=== PATIENT | male | born 1965 | race Caucasian/White ===

== ENCOUNTER → 2017-02-21 10:25 | Outpatient (CLI) | payer BC, SELFPAY ==
--- NOTE | 2017-02-21 10:41 | XR_ITS ---
EXAM: XR cervical spine 5V HISTORY: ITS.REASON: RT SHOULDER PAIN,RADIATING PAIN IN RT ARM ORDERING PHYSICIAN: Rodo Rubio PATIENT AGE: 51 years COMPARISON: None FINDINGS: Normal alignment. No fracture or dislocation. No lytic or blastic change. There is degenerative disc disease at C5-C6 and to a lesser degree at C6-C7. No critical foraminal narrowing apparent IMPRESSION: Mild degenerative disc disease C5-C6 and C6-C7
== END ==
PROVIDERS: PCP Internal Medicine; Visit Provider Internal Medicine
DX: M25.511 Pain in right shoulder (principal); M79.601 Pain in right arm
CPT/HCPCS: 72050

== ENCOUNTER → 2017-03-09 14:10 | Outpatient (CLI) | payer BC, SELFPAY ==
--- NOTE | 2017-03-09 14:12 | MR_ITS ---
MR shoulder RT wo con HISTORY: Right shoulder pain with numbness radiating down right arm into hand with limited range of motion ITS.REASON: RT SHOULDER PAIN/NECK PAIN ORDERING PHYSICIAN: Rodo Rubio PATIENT AGE: 51 years COMPARISON: Radiograph of 01/05/2017 TECHNIQUE: Standard multiplanar multiecho sequences are performed without contrast. FINDINGS: Osteoarthritic and hypertrophic changes are present at the acromioclavicular joint causing mild impingement upon the supraspinatus musculotendinous junction. There is full-thickness tear of the supraspinatus tendon distally and anteriorly with minimal retraction of the musculotendinous fibers at this region.. There are intact tendinous fibers posteriorly. The supraspinatus tendon is thickened with increased T2 and T1 signal posteriorly consistent with tendinopathy/tendinosis. There is also tendinopathy/tendinosis of the infraspinatus tendon. There is some increased T2 signal involving the distal aspect of the infraspinatus tendon which may suggest a partial tear. The subscapularis and teres minor tendons are intact. No obvious labral tear. The bicipital tendon is in place. There is a minor subcortical cystic change of the humeral head. IMPRESSION: 1. Hypertrophic changes of the acromioclavicular joint with mild impingement and tendinopathy/tendinosis of both the supraspinatus and infraspinatus tendon. 2. Full-thickness tear involves the anterior aspect of the supraspinatus tendon. The posterior aspect of the supraspinatus tendon does appear intact and is thickened consistent with tendinopathy/tendinosis. 3. Partial tear suspected of the infraspinatus tendon
== END ==
PROVIDERS: Family Provider Internal Medicine; PCP Internal Medicine; Visit Provider Internal Medicine
DX: M25.511 Pain in right shoulder (principal); M54.2 Cervicalgia
CPT/HCPCS: 73221

== ENCOUNTER 2017-04-25 15:30 | Outpatient (RCR) | payer BC, SELFPAY | END 2017-04-25 15:31 | disposition home or self-care (01) | LOC: PT 15:30 | PROVIDERS: Family Provider Internal Medicine; PCP Internal Medicine; Visit Provider Orthopaedic Surgery | DX: M50.222 Other cervical disc displacement at C5-C6 level (principal) | CPT/HCPCS: 97010; 97012; 97014; 97035; 97110; G0283 ==

== ENCOUNTER → 2017-06-07 12:30 | Outpatient (CLI) | payer BC, SELFPAY ==
[2017-06-07 12:33] LABS: Microscopic, Urine URINE MICROSCOPIC (MICROSCOPIC)
[2017-06-07 13:08] LABS: Activated Partial Thrombo Time 26.2 seconds (23.6-34.0); Prothrombin Time 10.8 seconds (9.4-11.8)
[2017-06-07 13:12] LABS: Basophils # 0.1 K/mm3 (0-0.2); Basophils % 0.9 % (0.1-2.0); Eosinophils # 0.2 K/mm3 (0.0-0.4); Eosinophils % 2.2 % (0.1-12.0); Hematocrit 45.2 % (42.0-52.0); Lymphocytes # 2.6 K/mm3 (0.7-4.5); Lymphocytes % 31.6 K/mm3 (10-50); Mean Corpuscular HGB Conc 33.1 g/dL (31.8-35.4); Mean Corpuscular Hemoglobin 28.7 pg (27.0-31.2); Mean Corpuscular Volume 86.8 fl (80-94); Monocytes # 0.5 K/mm3 (0.1-1.0); Monocytes % 6.3 % (1.7-9.3); Neutrophils # 4.9 K/mm3 (1.8-7.8); Platelet Count 224 K/mm3 (142-424); Red Blood Count 5.21 M/mm3 (4.60-6.20); Red Cell Distribution Width 12.7 % (11.5-17.5); White Blood Count 8.2 K/mm3 (4.8-10.8)
[2017-06-07 13:13] LABS: Appearance,Urine CLEAR (Clear); Bilirubin,Urine Negative (Negative); Blood, Urine Negative (Negative); Color,Urine YELLOW (Yellow); Glucose,Urine (UA) Negative (Negative); Ketones,Urine Negative (Negative); Leukocyte Esterase,Urine Negative (Negative); Nitrate,Urine Negative (Negative); Protein,Urine Negative (Negative); Specific Gravity, Urine 1.025 (1.005-1.030); Urobilinogen,Urine 0.2 EU/dl (0.2)
[2017-06-07 13:21] LABS: Bacteria,Urine 1+ /lpf; WBC,Urine Occasional #/hpf (0-3)
[2017-06-07 13:22] LABS: Mucus,Urine 2+ /lpf
[2017-06-07 14:05] LABS: Anion Gap 12.6 mEq/L (5-15); Blood Urea Nitrogen 12 mg/dL (7-18); Carbon Dioxide 28 mmol/L (21.0-32.0); Chloride 105 mmol/L (98-107); Creatinine,Serum 0.86 mg/dL (0.70-1.30); Estimated Glomerular Filt Rate 93 ml/min (>60); GFR (African American) 113 ML/MIN (>60); Potassium 4.6 mmoL/L (3.5-5.1); Sodium 141 mmol/L (136-145)
[2017-06-07 14:17] LABS: Glucose 111 mg/dL (74-106)
== END ==
PROVIDERS: Visit Provider Orthopaedic Surgery
DX: Z01.818 Encounter for other preprocedural examination (principal); M54.2 Cervicalgia
CPT/HCPCS: 36415; 80048; 81001; 85025; 85610; 85730; 93005

== ENCOUNTER → 2017-08-06 14:19 | Outpatient (CLI) | payer BC, SELFPAY ==
[2017-08-06 14:59] VITALS: PULSE 80
== END ==
PROVIDERS: Family Provider Internal Medicine; PCP Internal Medicine; Visit Provider Internal Medicine
DX: R06.02 Shortness of breath (principal)
CPT/HCPCS: 94060; 94640

== ENCOUNTER → 2018-04-15 15:12 | Outpatient (POV) | payer BC, SELFPAY | PROVIDERS: Visit Provider Nurse Practitioner Acute Care | DX: Z00.00 Encounter for general adult medical examination without abnormal findings (principal) ==

== ENCOUNTER → 2019-12-08 10:02 | Outpatient (CLI) | payer BC, SELFPAY ==
[2019-12-09 05:12] LABS: FSH 3.3 mIU/mL (1.5-12.4); LH 3.2 mIU/mL (1.7-8.6)
[2019-12-09 07:58] LABS: Prolactin 17.8 ng/mL (4.0-15.2)
[2019-12-10 09:23] LABS: Testosterone,Free 9.7 pg/mL (7.2-24.0)
== END ==
PROVIDERS: Visit Provider Internal Medicine
DX: R79.89 Other specified abnormal findings of blood chemistry (principal)
CPT/HCPCS: 36415; 83001; 83002; 84146; 84402

== ENCOUNTER → 2020-06-21 15:39 | Outpatient (POV) | payer BC, SELFPAY | PROVIDERS: Visit Provider Nurse Practitioner Family | DX: Z00.00 Encounter for general adult medical examination without abnormal findings (principal) ==

== ENCOUNTER → 2020-10-26 16:15 | Outpatient (CLI) | payer OTHER, SELFPAY | PROVIDERS: PCP Internal Medicine; Visit Provider Internal Medicine | DX: Z20.822 Contact with and (suspected) exposure to COVID-19 (principal) | CPT/HCPCS: U0003 ==

== ENCOUNTER → 2021-02-17 10:35 | Outpatient (CLI) | payer OTHER, SELFPAY | PROVIDERS: Visit Provider Nurse Practitioner | DX: Z20.822 Contact with and (suspected) exposure to COVID-19 (principal) | CPT/HCPCS: C9803; U0003; U0005 ==

== ENCOUNTER → 2021-06-14 17:21 | Outpatient (CLI) | payer BC, SELFPAY ==
[2021-06-14 20:31] LABS: Alanine Aminotransferase 13 U/L (12-78); Albumin/Globulin Ratio 1.5 (1.1-1.8); Alkaline Phosphatase 79 U/L (38-126); Anion Gap 12.2 mEq/L (5-15); Aspartate Amino Transferase 19 U/L (17-59); Bilirubin,Total 0.5 mg/dl (0.2-1.3); Blood Urea Nitrogen 14 mg/dl (9-20); Calcium 8.6 mg/dl (8.4-10.2); Carbon Dioxide 24 mmol/L (22.0-30.0); Chloride 107 mmol/L (98-107); Cholesterol 181 mg/dl (140-200); Estimated Glomerular Filt Rate 117 ml/min (>60); GFR (African American) 141 ML/MIN (>60); Globulin 2.7 g/dL (1.3-3.2); Glucose 88 mg/dl (74-100); HDL Cholesterol 36 mg/dl (40-60); Potassium 4.2 mmoL/L (3.5-5.1); Sodium 139 mmol/L (136-145); Total Protein,Serum 6.7 g/dl (6.3-8.2); Triglycerides 266 mg/dl (30-150); VLDL Cholesterol 53 mg/dL (0-40)
[2021-06-14 20:41] LABS: Direct LDL Cholesterol 50.82 mg/dL (100-129)
[2021-06-14 21:02] LABS: Prostate Specific Ag Screen 0.3 ng/ml (0.0-4.0)
[2021-06-14 21:24] LABS: Basophils # 0.1 K/mm3 (0-0.2); Basophils % 0.8 % (0.1-2.0); Eosinophils # 0.1 K/mm3 (0.0-0.4); Eosinophils % 1.8 % (0.1-12.0); Hematocrit 44.9 % (42.0-52.0); Hemoglobin 14.4 g/dL (14.1-18.0); Lymphocytes # 2.5 K/mm3 (0.7-4.5); Lymphocytes % 31.4 % (10-50); Mean Corpuscular HGB Conc 32.2 g/dL (31.8-35.4); Mean Corpuscular Hemoglobin 28.3 pg (27.0-31.2); Mean Platelet Volume 8.8 fl (7.4-10.4); Monocytes # 0.5 K/mm3 (0.1-1.0); Monocytes % 6.2 % (1.7-9.3); Neutrophils # 4.7 K/mm3 (1.8-7.8); Neutrophils % 59.7 % (37.0-80.0); Platelet Count 230 K/mm3 (142-424); Red Cell Distribution Width 12.8 % (11.5-17.5); White Blood Count 7.8 K/mm3 (4.8-10.8)
== END ==
PROVIDERS: PCP Internal Medicine; Visit Provider Internal Medicine
DX: R53.83 Other fatigue (principal); E78.5 Hyperlipidemia, unspecified; F41.0 Panic disorder [episodic paroxysmal anxiety]; K52.9 Noninfective gastroenteritis and colitis, unspecified; Z12.5 Encounter for screening for malignant neoplasm of prostate
CPT/HCPCS: 80053; 80061; 84443; 85025; G0103

== ENCOUNTER → 2021-07-11 16:00 | Outpatient (CLI) | payer BC, SELFPAY | PROVIDERS: Visit Provider Internal Medicine Gastroenterology | DX: Z01.812 Encounter for preprocedural laboratory examination (principal); Z20.822 Contact with and (suspected) exposure to COVID-19; Z12.11 Encounter for screening for malignant neoplasm of colon; Z85.038 Personal history of other malignant neoplasm of large intestine | CPT/HCPCS: C9803; U0003; U0005 ==

== ENCOUNTER 2021-07-14 08:30 | Day surgery (SDC) | payer BC, SELFPAY ==
[2021-07-11 12:40] VITALS: BMI 28.7
[2021-07-14] VITALS (7 sets, daily range): BP systolic 94–143; BP diastolic 59–89; PULSE 68–77; RESP 16–18; TEMP 36.3–37.1; O2SAT 94–98
--- NOTE | 2021-07-14 08:50 | HMH.ANESCL ---
[facility] Anesthesia Checklist - Structural Data Admitted From: Home Planned Operative Procedure/s: colonoscopy Consent for Planned Operative Procedure(s) Verified: Yes - Airway Assessment C-Spine Mobility Assessed: Yes TMJ Mobility Assessed: Yes Dentition: Edentulous - Neurological Assessment Level of Consciousness: Awake, Alert, Appropriate - Anesthesia Plan Anesthesia Risk discussed: Yes Anesthesia Plan: Verified ASA Class: II Anesthesia Type: MAC [facility] History I have reviewed the patient's past medical history: Yes Medical History: Denies:: Cancer, Diabetes Mellitus Type 1, Diabetes Mellitus Type 2, Internal Pacemaker, MRSA, Seizures *Have you ever received a pneumonia vaccine?: No *Have you received a flu vaccine this season?: No Anesthesia experience/problems:: none Laterality Cases: Bilateral: Tonsillectomy Other Surgeries: No: Pacemaker Amputation: No Fractures: Yes - *Social History Last grade of school completed: High school graduate Smoking Status: Current every day smoker Tobacco Type: cigarettes # Packs/Day (cigarettes): 1 Alcohol Intake: never Substance Use Type: denies use *Occupational Status:: employed *Travel in the last 8 weeks: None Family Hx:: No significant family history
--- NOTE | 2021-07-14 09:33 | HMH.SCOPE ---
- Procedure: Date: 07/14/21 Patient Date of :: 1965 Procedure Performed:: Screening colonoscopy Indications:: History of polyps Performing Provider:: Rosana Gilmore MD Referring Provider:: Brody Rubio MD Sedation:: Propofol Procedure:: After placing the patient in the left lateral decubitus position, the colonoscopy was gently inserted into the rectum and under direct visualization advanced to the cecum which was identified by transillumination in the right lower quadrant, identification of the ileocecal valve, appendiceal orifice, and cecal strap. Color, texture, mucosa, and anatomy of the colon were carefully examined with the scope. Findings:: Anal canal: normal Rectum: normal Sigmoid colon: normal without polyps or inflammatory changes Descending colon: normal without polyps or inflammatory changes Splenic flexure: normal Transverse colon: normal without polyps or inflammatory changes Hepatic flexure: normal Ascending colon: normal without polyps or inflammatory changes Cecum: normal Terminal ileum: not visualized Impression: Normal colonoscopy Recommendations:: Follow up exam in about FIVE years or so, sooner if clinically indicated Complications:: None Estimated blood obtained (mL): 0
== END 2021-07-14 10:03 | disposition home or self-care (01) ==
LOC: OUTP 08:32
PROVIDERS: PCP Internal Medicine; Visit Provider Internal Medicine Gastroenterology
PROC: 0DJD8ZZ Inspection of Lower Intestinal Tract, Via Natural or Artificial Opening Endoscopic (ICD-10-PCS; CPT 45378; principal; 2021-07-14 10:30)
DX: Z12.11 Encounter for screening for malignant neoplasm of colon (principal); Z86.010 Personal history of colon polyps
CPT/HCPCS: 45378

== ENCOUNTER 2021-08-15 19:47 | Emergency (ER) | payer BC, SELFPAY ==
[2021-08-15 20:07] VITALS: BP 145/66; PULSE 70; RESP 18; TEMP 37.1; O2SAT 97; BMI 27.1
--- NOTE | 2021-08-15 20:07 | HMH.EDUTC ---
[facility] [place] Clinical Impression: Need for Tdap vaccination Laceration of right knee Qualifiers: Encounter type: initial encounter Qualified Code(s): S81.011A - Laceration without foreign body, right knee, initial encounter Disposition: Home, Self-Care Condition on Discharge: Good Instructions: How to Care for a Laceration After Repair, Laceration Repair, DI for Laceration Repair -- Simple, Tetanus, Diphtheria, Pertussis (Tdap) Vaccine Additional Instructions: Keep the wound clean and dry. Keep a dressing on it if you are going to be getting it dirty. Watch the for signs of infection, such as redness, swelling, drainage, fever. etc. Take tylenol or ibuprofen for pain. Take the keflex as directed (antibiotics). Follow up with your regular doctor for any issues. Or you could return here. Return here in 7 to 10 days to have the sutures removed. GO TO THE ER FOR ANY WORSENING SYMPTOMS OR CONCERNS. Prescriptions: cephALEXin [cephALEXin 500mg capsule] 500 mg PO Q6H 10 Days #40 cap Transmission Status: Received by [facility] Referrals: Rodo Rubio MD [Primary Care Provider] - Time of Disposition: 20:23 Medical Decision Making - Medical Records Medical records reviewed: No: I reviewed the patient's medical records. - Shayan Inquiry Pt receiving controlled substance: No Vital Signs: 08/15/21 20:07 08/15/21 20:28 Temperature 98.7 F 98.7 F Temperature Source Oral Pulse Rate 70 Pulse Rate [Left] 70 Respiratory Rate 18 18 Blood Pressure 145/66 H Blood Pressure [Right Arm] 145/66 H Blood Pressure Mean [Right Arm] 92 02 Sat by Pulse Oximetry 97 Orders (Tests/Meds): ED MEDICATIONS Discontinued Medications Generic Name Dose Route Start Last Admin Trade Name Freq PRN Reason Stop Dose Admin Lidocaine HCl 5 ml 08/15/21 20:25 08/15/21 20:26 Lidocaine 1% 10ml Mdv IM 08/15/21 20:26 5 ml ONCE ONE Administration Tetanus Immune Globulin 250 unit 08/15/21 20:23 08/15/21 20:24 Tetanus Immune Globulin 250 Units IM 08/15/21 20:24 Not Given ONCE ONE Tetanus/Diphtheria Toxoids 0.5 ml 08/15/21 20:26 08/15/21 20:27 Tetanus-Diphth Toxoid, Adult 0.5ml Syr IM 08/15/21 20:27 0.5 ml .ONCE ONE Administration [facility] [place] HPI - General Stated complaint: AO 08/15 @1900 lac R knee Time Seen by Provider: 08/15/21 20:10 - History of Present Illness Provider Complaint: He was sharpening a garden tool when he slipped 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 He has a laceration on the top of his right knee near the center of his knee cap. His tetanus immunization is not up to date. He denies other injury. - Related Data Previous Rx's Medication Instructions Recorded cephALEXin [cephALEXin 500mg 500 mg PO Q6H 10 Days #40 cap 08/15/21 capsule] Allergies Allergy/AdvReac Type Severity Reaction Status Date / Time Penicillins Allergy Verified 08/15/21 20:10 [facility] History - Hepatitis A Screen Attestation statement:: This patient has been screened for Hepatitis A risk factors. I have reviewed the patient's past medical history: Yes Medical History: Denies:: Cancer, Diabetes Mellitus Type 1, Diabetes Mellitus Type 2, Internal Pacemaker, MRSA, Seizures Laterality Cases: Bilateral: Tonsillectomy Other Surgeries: No: Pacemaker Amputation: No Fractures: Yes - Social History Smoking Status: Current every day smoker Tobacco Type: cigarettes # Packs/Day (cigarettes): 1 Alcohol Intake: never Substance Use Type: denies use Occupational Status: employed Family Hx:: No significant family history ROS Obtained: Yes All systems reviewed & no additional complaints - Constitutional Constitutional: Denies chills, Denies fever(s) - Musculoskeletal Musculoskeletal: Denies joint pain - Integumentary/Breasts Skin/Breast: Reports as per HPI - Neurologic Neurologic: Denies tingling/numbness/burning se
[2021-08-15 20:28] VITALS: BP 145/66; PULSE 70; RESP 18; TEMP 37.1
== END 2021-08-15 20:29 | disposition home or self-care (01) ==
PROVIDERS: Emergency Provider Nurse Practitioner Family; PCP Internal Medicine
DX: S81.011A Laceration without foreign body, right knee, initial encounter (principal); Z23 Encounter for immunization; Z88.0 Allergy status to penicillin; Z72.0 Tobacco use
CPT/HCPCS: 12001; 90471; 90714; 96372; 99213; G0463

== ENCOUNTER → 2021-11-08 15:33 | Outpatient (CLI) | payer BC, SELFPAY ==
--- NOTE | 2021-11-08 15:37 | XR_ITS ---
FINAL REPORT TECHNIQUE: Chest PA & Lateral CLINICAL HISTORY: MID BACK PAIN COMPARISON: June 16, 2017 FINDINGS: 2 views of the chest were performed. The heart size is normal. The mediastinum is within normal limits. There are mild chronic changes in both lungs. There is no acute cardiopulmonary process. There are no pleural effusions. There is no pneumothorax. The bony thorax appears intact. IMPRESSION: No acute cardiopulmonary process. Reviewed, Interpreted and Dictated by Chriss Sanders MD Transcribed by Sony Samuel Authenticated and . [facility]
--- NOTE | 2021-11-08 15:37 | XR_ITS ---
FINAL REPORT CLINICAL HISTORY: MID LINE BACK PAIN FINDINGS: THORACIC SPINE SERIES. AP and lateral views were obtained. There is no acute fracture. There is moderate anterior osteophyte formation in the midthoracic spine. The disc spaces are maintained. There is no malalignment. IMPRESSION: Moderate anterior osteophyte formation in the midthoracic spine. Reviewed, Interpreted and Dictated by Chriss Sanders MD Transcribed by Sony Samuel Authenticated and [facility]
== END ==
PROVIDERS: PCP Internal Medicine; Visit Provider Internal Medicine
DX: M54.6 Pain in thoracic spine (principal)
CPT/HCPCS: 71046; 72072

== ENCOUNTER 2023-12-05 14:01 | Outpatient (CLI) | payer BC, SELFPAY ==
--- NOTE | 2023-12-05 14:05 | XR_ITS ---
PROCEDURE INFORMATION: Exam: XR Cervical Spine Exam date and time: 12/05/2023 2:24 PM Age: 58 years old Clinical indication: Neck pain; Additional info: Neck pain and stiffness TECHNIQUE: Imaging protocol: Radiologic exam of the cervical spine. Views: 4 or 5 views. COMPARISON: CR XR CERVICAL SPINE 5V 12/05/2023 2:24 PM FINDINGS: Bones/joints: Postop anterior fusion C5 and C6. Mild degenerative change at C6-C7 Soft tissues: Unremarkable. IMPRESSION: Postop anterior fusion of C5 and C6 level. Mild degenerative change at C6-C7 level.
== END 2023-12-05 23:59 | disposition home or self-care (01) ==
LOC: RAD 14:02
PROVIDERS: PCP Internal Medicine; Visit Provider Internal Medicine
DX: M54.2 Cervicalgia (principal)
CPT/HCPCS: 72050

== ENCOUNTER 2023-12-21 11:45 | Outpatient (CLI) | payer BC, SELFPAY ==
[2023-12-22 14:11] LABS: Deamidated Gliadin Abs, IgA 5 units (0-19); Deamidated Gliadin Abs, IgG 2 units (0-19); Tissue Transglutaminase IgA Ab <2 U/mL (0-3); Tissue Transglutaminase IgG Ab <2 U/mL (0-5)
[2023-12-24 14:11] LABS: Endomysial IgA Antibody Negative (Negative)
[2023-12-25 01:13] LABS: Pancreatic Elastase, Fecal 205 (>200)
[2023-12-25 13:12] LABS: Calprotectin, Fecal 28 ug/g (0-120)
[2023-12-26 09:39] LABS: Reticulin IgA Antibody Negative titer (Neg:<1:2.5)
== END 2023-12-21 23:59 | disposition home or self-care (01) ==
LOC: LAB 11:45
PROVIDERS: PCP Internal Medicine; Visit Provider Nurse Practitioner Family
DX: K52.9 Noninfective gastroenteritis and colitis, unspecified (principal); R15.2 Fecal urgency; Z83.79 Family history of other diseases of the digestive system; R14.3 Flatulence
CPT/HCPCS: 36415; 82656; 83516; 83993; 86255; 86256

== ENCOUNTER 2024-09-24 22:31 | Day surgery (SDC) | payer BC, SELFPAY ==
[2024-09-24 22:44] VITALS: BP 165/105; PULSE 72; RESP 18; TEMP 36.7; O2SAT 100; BMI 28.4
--- NOTE | 2024-09-24 22:49 | XR_ITS ---
PROCEDURE INFORMATION: Exam: XR Chest Exam date and time: 09/24/2024 10:58 PM Age: 59 years old Clinical indication: Other: Possible food impaction; PT states hes tried multiple methods and cannot get it unlodged TECHNIQUE: Imaging protocol: Radiologic exam of the chest. Views: 1 view. COMPARISON: CR XR CHEST 2V 11/08/2021 3:40 PM FINDINGS: Lungs: Prominent interstitial markings, nonspecific, may be seen in the setting of interstitial edema, reactive airways disease or atypical infection. Pleural spaces: No pneumothorax. Heart/Mediastinum: Unremarkable cardiomediastinal silhouette. Bones/joints: Metallic plate cervical spine. IMPRESSION: Prominent interstitial markings, nonspecific, may be seen in the setting of interstitial edema, reactive airways disease or atypical infection.
--- NOTE | 2024-09-24 23:09 | ECG_ITS ---
APPROVED REPORT Exam: Resting ECG HR:66 bpm ECG Measurements Heart Rate 66 AXES NE 188 P 57 QRSd 98 QRS 49 QT 387 T 41 QTc 400 Conclusion SINUS RHYTHM NORMAL ECG Electronically signed by : OPAL HERNÁNDEZ, 09/25/2024 06:38:15
--- NOTE | 2024-09-24 23:09 | XR_ITS ---
PROCEDURE INFORMATION: Exam: XR Chest Exam date and time: 09/24/2024 11:17 PM Age: 59 years old Clinical indication: Other: Food bolus TECHNIQUE: Imaging protocol: Radiologic exam of the chest. Views: 1 view. COMPARISON: CR XR CHEST PORTABLE 09/24/2024 10:58 PM FINDINGS: Lungs: No retrocardiac consolidation. Pleural spaces: No pneumothorax. Heart/Mediastinum: Prominent cardiomediastinal silhouette. Bones/joints: No acute osseous findings. IMPRESSION: Food bolus is often occult on radiograph. Suggest correlation with CT
[2024-09-24] MEDS: GLUCAGON 1 MG/ML VIAL IV (23:14)
--- NOTE | 2024-09-24 23:17 | PC.NURSE ---
Report given to Evelia EARL
[2024-09-24 23:20] LABS: Hematocrit 42.5 % (42.0-52.0); Hemoglobin 14.2 g/dL (14.1-18.0); Immature Granulocytes % 0.3 %; Mean Corpuscular HGB Conc 33.4 g/dL (31.8-35.4); Mean Corpuscular Hemoglobin 28.7 pg (27.0-31.2); Mean Corpuscular Volume 86.0 fl (80-94); Nucleated Red Blood Cells % 0 %; Platelet Count 250 K/mm3 (142-424); Red Blood Count 4.94 M/mm3 (4.60-6.20); Red Cell Distribution Width-SD 40.8 fL; White Blood Count 11.9 K/mm3 (4.8-10.8)
--- NOTE | 2024-09-24 23:23 | PC.NURSE ---
Amy Gifford RN gave report to Emir Ontiveros RN
[2024-09-24 23:44] LABS: Alanine Aminotransferase 18 U/L (12-78); Albumin Level 4.5 g/dl (3.5-5.0); Albumin/Globulin Ratio 1.4 (1.1-1.8); Alkaline Phosphatase 95 U/L (38-126); Anion Gap 12.0 mEq/L (5-15); Aspartate Amino Transferase 25 U/L (17-59); Bilirubin,Total 0.5 mg/dl (0.2-1.3); Blood Urea Nitrogen 14 mg/dl (9-20); Calcium 9.3 mg/dl (8.4-10.2); Carbon Dioxide 26 mmol/L (22.0-30.0); Chloride 105 mmol/L (98-107); Creatinine Clearance Estimated 114 mL/min (50-200); Creatinine,Serum 0.90 mg/dl (0.66-1.25); Estimated Glomerular Filt Rate 86 ml/min (>60); GFR (African American) 104 ML/MIN (>60); Globulin 3.2 g/dL (1.3-3.2); Glucose 106 mg/dl (74-100); Potassium 4.0 mmoL/L (3.5-5.1); Sodium 139 mmol/L (136-145); Total Protein,Serum 7.7 g/dl (6.3-8.2)
[2024-09-24 23:45] LABS: INR 1.01 (0.9-1.1); Prothrombin Time 11.2 seconds (10.1-12.5)
--- NOTE | 2024-09-24 23:47 | PC.NURSE ---
Resumed care from Emma EARL, pt attempted pepsi and jumping, unable to keep pepsi down.
[2024-09-24 23:56] LABS: Troponin I < 0.01 ng/ml (0.00-0.034)
[2024-09-25] VITALS (7 sets, daily range): BP systolic 109–152; BP diastolic 73–105; PULSE 67–88; RESP 16–18; TEMP 36.8–37.1; O2SAT 98–99
--- NOTE | 2024-09-25 00:02 | HMH.EDGENADL ---
Discharge Plan Disposition Patient Disposition: Admitted Condition: Good Prescriptions Prescriptions: No Action meclizine 25 mg tablet 25 mg PO TID PRN (Reason: vertigo) Qty: 60 1RF albuterol sulfate 90 mcg/actuation HFA aerosol inhaler inhalation Patient Comments: INHALE 2 PUFFS BY MOUTH 4 TIMES DAILY NEEDED colestipol 1 gram tablet 2 g PO TID Qty: 180 5RF Referrals Follow up/Referrals: Rodo Rubio MD [Primary Care Provider, Medical] - See instructions Clinical Impressions Clinical Impression: Esophageal obstruction due to food impaction Instructions Patient Instructions: DI for Skin Abscess Print Language Print Language: Nepali Discharge ED Provider: Marino Cole General Adult HPI General Chief complaint: Skin/Abscess/Foreign Body Stated complaint: something stuck in throat Time Seen by Provider: 09/24/24 22:59 Mode of Arrival: Ambulatory Source of Information: Patient Description of Symptoms (Recalled from ER Triage Doc. by RN): patient presents to ED for food impaction. this occured at approximately 5:30pm today while eating pot roast. patient stated he has tried several methods at home to get the food to go down, including drinking, and carbonated beverages. HE does have a hard time swallowing saliva at times. he is complaining of discomfort in the chest, but no pain. Patient stated he does smoke daily. History of Present Illness HPI narrative: 59-year-old male who takes colestipol daily but no other daily medications, allergy to penicillin presents to the ER for concerns of food stuck in the esophagus. Patient states around 5:30 PM while eating supper he had a piece of pot roast to get stuck. He states he has tried drinking including carbonated beverages. He states anything that he takes and he can feel a buildup and then it comes back up causing him to vomit. Patient is not able to tolerate his saliva either because it eventually builds up and he vomits it. He reports discomfort feeling just below the midsternal area. He smokes daily. He has no difficulty breathing, no dizziness, numbness, tingling, weakness, abdominal pain, or any other associated symptoms. Patient states he has had a few small incidents like this in the past but everything always passed on its own. He has never had to have a procedure for this problem. No other complaints or concerns. Related Data Home Medications ?Medication ?Instructions ?Recorded ?Confirmed albuterol sulfate 90 mcg/actuation inhalation 12/19/23 03/13/24 aerosol inhaler Previous Rx's ?Medication ?Instructions ?Recorded meclizine 25 mg tablet 25 mg PO TID PRN vertigo #60 tabs 12/03/23 colestipol 1 gram tablet 2 g (2 x 1 gram) PO TID #180 tabs 12/19/23 Allergies Allergy/AdvReac Type Severity Reaction Status Date / Time Penicillins Allergy Verified 03/13/24 15:03 [facility] Disclaimer: The information contained in this section may have been updated after the patient was seen, as this information can be updated by other users. Social History Smoking Status: Current every day smoker tobacco type: cigarettes packs per day: 1 alcohol intake: never substance use type: denies use current occupational status: employed Travel in the last 8 weeks?: None Have you lived/traveled outside [place] in past 30 days?: No Contact w/someone who lives/traveled outside US past 30 days?: No Exposure to someone with infectious disease in past 14 days?: No Do you have a fever (greater than 100.4 F or 38 C)?: No Have you tested positive for COVID-19?: No Exposed to someone with COVID-19 in past 14 days?: No Do you have a sore throat?: No Do you have a cough?: No Do you have any weakness?: No Do you have any diarrhea?: No Are you experiencing any unusual bleeding?: No Do you have any muscle aches/pain?: No Do you have any abdominal pain?: No Are you experiencing loss of taste or smell?: No Other Medical History Have you received the Flu Vaccine for this season: No Have you received the Pneumonia Vaccine: Yes ROS Obtained: Yes Systems reviewed as appropriate & no additional complaints except as documented Per HPI Physical Exam General General appearance: alert and in no apparent distress Head Head exam: atraumatic and normocephalic Eye Eye exam: Present PERRL and EOMI ENT ENT exam: Present mucous membranes moist and other (Patient is able to swallow but after swallowing saliva multiple times eventually he regurgitates it.) Neck Neck exam: Present normal inspection and full ROM Chest Chest inspection: Present symmetric chest wall rise; Absent tenderness Respiratory Respiratory exam: Present normal lung sounds bilaterally; Absent respiratory distress, wheezes or stridor Cardiovascular Cardiovascular exam: Present regular rate and normal rhythm Abdominal Exam Abdominal exam: Present soft; Absent distention, tenderness, guarding or rebound Extremities Exam Extremities exam: Present full ROM Neurological Exam Neurological exam: Present alert and oriented X3; Absent motor sensory deficit Psychiatric Psychiatric exam: Present normal affect and normal mood Skin Skin exam: Present warm and dry Medical Decision Making Medical Records Medical records reviewed: Yes I reviewed the patient's medical records. Screening: Per USPSTF and CDC recommendations, given the prevalence of disease in our region, it is our hospital?s policy to screen for HIV and viral Hepatitis for all patients aged 18 and over and those with ongoing risk factors. Shayan Inquiry Pt receiving controlled substance: No Vital Signs: 09/24/24 22:44 Temperature 98.0 F Temperature Source Tympanic Pulse Rate [Right Brachial] 72 Respiratory Rate 18 Blood Pressure [Right Arm] 165/105 H Blood Pressure Mean [Right Arm] 125 Blood Pressure Source [Right Arm] Automatic Cuff Blood Pressure Position [Right Arm] Sitting 02 Sat by Pulse Oximetry 100 Oxygen Delivery Method Room Air Lab Data Lab Results 09/24/24 23:11: WBC 11.9 H, RBC 4.94, Hgb 14.2, Hct 42.5, MCV 86.0, MCH 28.7, MCHC 33.4, RDW 13.1, Plt Count 250, MPV 10.1, Neut % (Auto) 66.0, Lymph % (Auto) 24.4, Price % (Auto) 7.0, Eos % (Auto) 1.5, Baso % (Auto) 0.8, Neut # (Auto) 7.8, Lymph # (Auto) 2.9, Price # (Auto) 0.8, Eos # (Auto) 0.2, Baso # (Auto) 0.1, PT 11.2, INR 1.01, Sodium 139, Potassium 4.0, Chloride 105, Carbon Dioxide 26, Anion Gap 12.0, BUN 14, Creatinine 0.90, Estimated Creat Clear 114, Estimated GFR 86, Est GFR ( Amer) 104, Glucose 106 H, Calcium 9.3, Total Bilirubin 0.5, AST 25, ALT 18, Alkaline Phosphatase 95, Troponin I < 0.01, Total Protein 7.7, Albumin 4.5, Globulin 3.2, Albumin/Globulin Ratio 1.4 09/24/24 23:11 09/24/24 23:11 Orders (Tests/Meds): ED MEDICATIONS Discontinued Medications Generic Name Dose Route Start Last Admin Trade Name Bre PRN Reason Stop Dose Admin Glucagon 1 mg 09/24/24 22:59 09/24/24 23:14 Glucagon 1 Mg/Ml Vial IV 09/24/24 23:00 1 mg ONCE ONE Administration ORDERS Category Date Time Status Chest XR -- portable [XR chest portable] Stat Exams 09/24/24 22:49 Completed Portable CXR [XR chest portable] Stat Exams 09/24/24 23:09 Completed CBC w/Auto Diff [Complete Blood Count Auto Diff] Stat Lab 09/24/24 23:11 Completed CMP [Comprehensive Metabolic Panel] Stat Lab 09/24/24 23:11 Completed PT INR [Prothrombin Time INR] Stat Lab 09/24/24 23:11 Completed Trop I [Troponin I] Stat Lab 09/24/24 23:11 Completed Troponin I Q3H Lab 09/25/24 02:15 Ordered Troponin I Q3H Lab 09/25/24 05:15 Ordered Medical Decision Narrative: In summary, this 59-year-old male with comorbidities described in the HPI presents to the emergency department today with concerns of food stuck in the esophagus. On initial evaluation patient is hemodynamically stable, afebrile, airway is patent with no stridor, patient has no reproducible pain on exam but has chronic discomfort below the midsternal area worsened with swallowing. He is able to tolerate secretions but after swallowing saliva multiple times or drinking anything, he regurgitates it. Differential diagnosis includes but is not limited to food bolus, esophageal impaction, I considered the possibility of Boerhaave syndrome but have low suspicion for this since patient is hemodynamically stable with no other chest pain, no crepitus, no hematemesis. I did also consider the possibility of chest pain being from ACS but I have lower suspicion for this given the history. Based on these concerns, I ordered cardiac workup, EKG, chest x-rays. ECG personally interpreted demonstrates normal sinus rhythm, rate 66, normal axis, normal MO and QTc, no STEMI. Patient received IV glucagon for treatment in an attempt to relax the esophagus to pass the bolus Labs personally reviewed demonstrate slight leukocytosis WBC 11.9 is nonspecific and nonactionable at this time, no anemia, normal platelets, PT/INR normal, CMP nonactionable, initial troponin undetectably low less than 0.01. Labs were mostly collected for anticipation of potential operative intervention. Nonactionable at this time. XR personally interpreted demonstrates possible slight interstitial edema but patient has no correlating symptoms of the abnormalities, there is no evidence of esophageal perforation, food bolus is not apparent on the x-ray, see radiology read for final interpretation. Approximately 15 minutes after receiving the glucagon, patient attempted to drink a carbonated beverage and also tried firm heel strike to dislodge the bolus. Unfortunately none of these techniques work. Patient continues having esophageal obstruction. Regurgitation of anything that he swallows. He is agreeable to surgical evaluation and intervention. I consulted the general surgeon on-call and spoke with Dr. Brewster who is going to take the patient to the OR for EGD and food bolus removal. Patient agreeable. He was taken to the OR in stable condition. Critical Care Critical Care Time Critical Care Time: No
--- NOTE | 2024-09-25 00:13 | PC.NURSE ---
PT belongings placed in PT item bag. PT has a pair of boots, pair of socks, underwear, belt, shirt. is in possession of wallet.
--- NOTE | 2024-09-25 00:25 | PC.NURSE ---
Dr Brewster at bedside, consent signed
--- NOTE | 2024-09-25 00:25 | PC.NURSE ---
MD Ney at bedside
--- NOTE | 2024-09-25 00:29 | EXP.GEN.HP ---
HPI HPI HPI: This is a 59-year-old gentleman presenting emergency department evaluation with increasing chest discomfort and inability to swallow after a mill of pot roast at approximately 5:30 PM on September 24, 2024. HPI forwarded below from emergency department evaluation. Forwarded from emergency department evaluation: Chief complaint: Skin/Abscess/Foreign Body Stated complaint: something stuck in throat Time Seen by Provider: 09/24/24 22:59 Mode of Arrival: Ambulatory Source of Information: Patient Description of Symptoms (Recalled from ER Triage Doc. by RN): patient presents to ED for food impaction. this occured at approximately 5:30pm today while eating pot roast. patient stated he has tried several methods at home to get the food to go down, including drinking, and carbonated beverages. HE does have a hard time swallowing saliva at times. he is complaining of discomfort in the chest, but no pain. Patient stated he does smoke daily. History of Present Illness HPI narrative: 59-year-old male who takes colestipol daily but no other daily medications, allergy to penicillin presents to the ER for concerns of food stuck in the esophagus. Patient states around 5:30 PM while eating supper he had a piece of pot roast to get stuck. He states he has tried drinking including carbonated beverages. He states anything that he takes and he can feel a buildup and then it comes back up causing him to vomit. Patient is not able to tolerate his saliva either because it eventually builds up and he vomits it. He reports discomfort feeling just below the midsternal area. He smokes daily. He has no difficulty breathing, no dizziness, numbness, tingling, weakness, abdominal pain, or any other associated symptoms. Patient states he has had a few small incidents like this in the past but everything always passed on its own. He has never had to have a procedure for this problem. No other complaints or concerns. [facility] Disclaimer: The information contained in this section may have been updated after the patient was seen, as this information can be updated by other users. Social History Smoking Status: Current every day smoker tobacco type: cigarettes packs per day: 1 alcohol intake: never substance use type: denies use current occupational status: employed Travel in the last 8 weeks?: None Have you lived/traveled outside [place] in past 30 days?: No Contact w/someone who lives/traveled outside US past 30 days?: No Exposure to someone with infectious disease in past 14 days?: No Do you have a fever (greater than 100.4 F or 38 C)?: No Have you tested positive for COVID-19?: No Exposed to someone with COVID-19 in past 14 days?: No Do you have a sore throat?: No Do you have a cough?: No Do you have any weakness?: No Do you have any diarrhea?: No Are you experiencing any unusual bleeding?: No Do you have any muscle aches/pain?: No Do you have any abdominal pain?: No Are you experiencing loss of taste or smell?: No Other Medical History Have you received the Flu Vaccine for this season: No Have you received the Pneumonia Vaccine: Yes Review of Systems Constitutional Constitutional: Reports system reviewed and no additional complaints, except as documented *Gastrointestinal Gastrointestinal: Reports as per [facility] Meds Home Medications and Allergies Home Medications ?Medication ?Instructions ?Recorded ?Confirmed ?Type meclizine 25 mg tablet 25 mg PO TID PRN vertigo #60 tabs 12/03/23 03/13/24 Rx albuterol sulfate 90 mcg/actuation inhalation 12/19/23 03/13/24 History aerosol inhaler colestipol 1 gram tablet 2 g (2 x 1 gram) PO TID #180 tabs 12/19/23 03/13/24 Rx New Prescriptions to Start Prescriptions: Allergies Allergy/AdvReac Type Severity Reaction Status Date / Time Penicillins Allergy Verified 03/13/24 15:03 Exam Data for Last 24 hours Vital signs and Labs for Last 24 Hours: Temp Pulse Resp BP Pulse Ox O2 Del Method 98.7 F 68 16 136/105 H 98 Room Air 09/25/24 00:15 09/25/24 00:15 09/25/24 00:15 09/25/24 00:15 09/25/24 00:15 09/25/24 00:15 Laboratory Results - last 24 hr 09/24/24 23:11: WBC 11.9 H, RBC 4.94, Hgb 14.2, Hct 42.5, MCV 86.0, MCH 28.7, MCHC 33.4, RDW 13.1, Plt Count 250, MPV 10.1, Neut % (Auto) 66.0, Lymph % (Auto) 24.4, [place] % (Auto) 7.0, Eos % (Auto) 1.5, Baso % (Auto) 0.8, Neut # (Auto) 7.8, Lymph # (Auto) 2.9, [place] # (Auto) 0.8, Eos # (Auto) 0.2, Baso # (Auto) 0.1, PT 11.2, INR 1.01, Sodium 139, Potassium 4.0, Chloride 105, Carbon Dioxide 26, Anion Gap 12.0, BUN 14, Creatinine 0.90, Estimated Creat Clear 114, Estimated GFR 86, Est GFR ( Amer) 104, Glucose 106 H, Calcium 9.3, Total Bilirubin 0.5, AST 25, ALT 18, Alkaline Phosphatase 95, Troponin I < 0.01, Total Protein 7.7, Albumin 4.5, Globulin 3.2, Albumin/Globulin Ratio 1.4 I & O for Last 24 hours: Intake & Output 09/22/24 09/23/24 09/24/24 09/25/24 11:59 11:59 11:59 11:59 Weight 204 lb Constitutional Constitutional: no acute distress *Routine HEENT Exam Head: Present normocephalic Eye: Present EOMI ENT: Present mucous membranes moist *Routine Neck Exam Neck: Present full ROM *Routine Respiratory Exam Respiratory: Absent respiratory distress *Routine Cardiovascular Exam Cardiovascular: Absent tachycardia *Routine Abdominal Exam Abdominal: Present soft *Routine Rectal Exam Rectal:: deferred *Routine Genitalia Exam Genitalia:: deferred *Routine Extremities Exam Extremities: Present full ROM *Routine Skin Exam Skin: Absent erythema *Routine Neurological Exam Neurological: Present alert Results Results Lab Results Last 24 Hours:: Laboratory Results - last 24 hr 09/24/24 23:11: WBC 11.9 H, RBC 4.94, Hgb 14.2, Hct 42.5, MCV 86.0, MCH 28.7, MCHC 33.4, RDW 13.1, Plt Count 250, MPV 10.1, Neut % (Auto) 66.0, Lymph % (Auto) 24.4, [place] % (Auto) 7.0, Eos % (Auto) 1.5, Baso % (Auto) 0.8, Neut # (Auto) 7.8, Lymph # (Auto) 2.9, [place] # (Auto) 0.8, Eos # (Auto) 0.2, Baso # (Auto) 0.1, PT 11.2, INR 1.01, Sodium 139, Potassium 4.0, Chloride 105, Carbon Dioxide 26, Anion Gap 12.0, BUN 14, Creatinine 0.90, Estimated Creat Clear 114, Estimated GFR 86, Est GFR ( Amer) 104, Glucose 106 H, Calcium 9.3, Total Bilirubin 0.5, AST 25, ALT 18, Alkaline Phosphatase 95, Troponin I < 0.01, Total Protein 7.7, Albumin 4.5, Globulin 3.2, Albumin/Globulin Ratio 1.4 Assessment and Plan *Assessment and plan (1) Esophageal obstruction due to food impaction: Status: Acute Category: Medical Code(s): T18.128A - Food in esophagus causing other injury, initial encounter; [id number].[id number] - Food entering into or through a natural orifice, initial encounter Plan: Transfer to the endoscopy suite for esophagogastroscopy/foreign body removal I have discussed the risks and benefits including, but not limited to: Bleeding Infection Damage to surrounding tissue Inherent risks of sedation The patient agrees to proceed.
--- NOTE | 2024-09-25 00:51 | HMH.SCOPE ---
Procedure: Date: 09/25/24 Patient Date of :: 1965 Procedure Performed:: Esophagogastroscopy with foreign body removal Indications:: Esophageal foreign body Performing Provider:: Abiel Brewster MD Referring Provider:: . Sedation:: Monitored anesthesia care Procedure:: After informed consent was obtained the patient was taken to the endoscopy suite. Sedation ensued after the patient was transferred to the left lateral decubitus position. Pulse, blood pressure, and oxygen saturation were monitored throughout the procedure. The endoscope was advanced to the distal esophagus where foreign body was encountered. After removal of the foreign body utilizing the suction device the gastroscope was passed into the mid/distal gastric body. Retroflexion within the gastric lumen was accomplished. The gastroscope was carefully removed and the patient was transferred to recovery in stable condition. Please see findings and specimens below for detail. Findings:: Large food bolus consistent with ingested food particles in gastroesophageal junction Severe inflammatory changes in/around gastroesophageal junction Foreign body removed in a retrograde fashion via the E suction device Specimens:: none Recommendations:: Proton pump inhibition Clear liquid diet for 24 hours...followed by full liquid diet for 24 hours...followed by soft diet Complications:: No immediate Estimated blood obtained (mL): 0 Colonoscopy Component Colonoscopy Component Was a colonoscopy performed during today's procedure?: No
--- NOTE | 2024-09-25 01:27 | P.PNANES_ITS ---
[facility] Disclaimer: The information contained in this section may have been updated after the patient was seen, as this information can be updated by other users. Social History Smoking Status: Current every day smoker tobacco type: cigarettes packs per day: 1 alcohol intake: never substance use type: denies use current occupational status: employed Travel in the last 8 weeks?: None Have you lived/traveled outside [place] in past 30 days?: No Contact w/someone who lives/traveled outside [place] past 30 days?: No Exposure to someone with infectious disease in past 14 days?: No Do you have a fever (greater than 100.4 F or 38 C)?: No Have you tested positive for COVID-19?: No Exposed to someone with COVID-19 in past 14 days?: No Do you have a sore throat?: No Do you have a cough?: No Do you have any weakness?: No Do you have any diarrhea?: No Are you experiencing any unusual bleeding?: No Do you have any muscle aches/pain?: No Do you have any abdominal pain?: No Are you experiencing loss of taste or smell?: No [facility] Anesthesia Checklist Patient Identification Patient Identification: Arm Band and Verbal (Name & ) Structural Data Admitted From: Emergency Dept Planned Operative Procedure/s: EGD for food bolus Consent for Planned Operative Procedure(s) Verified: Yes Verified Documents: Surgical Consent and History and Physical NPO Status Verified Time NPO: 17:30 Additional verifications Anesthesia Reactions: No Previous Colonoscopy: Yes Cardiovascular Assessment Pulse Rhythm: Regular Airway Assessment Mallampati Score:: Class II Dentition: Partials Neurological Assessment Level of Consciousness: Awake, Alert and Appropriate Hx Seizures: No Anesthesia Plan Anesthesia Risk discussed: Yes Anesthesia Plan: Verified ASA Class: II Anesthesia Type: MAC
[2024-09-25 02:34] LABS: Hepatitis C Ab Qual. W/ RFX NEGATIVE (Negative)
== END 2024-09-25 01:52 | disposition home or self-care (01) ==
LOC: ER 09-25 00:35 → OR 09-25 00:46
PROVIDERS: Emergency Provider Emergency Medicine; PCP Internal Medicine; Visit Provider Surgery
PROC: 0DJ08ZZ Inspection of Upper Intestinal Tract, Via Natural or Artificial Opening Endoscopic (ICD-10-PCS; CPT 43247; principal; 2024-09-25 00:50)
DX: T18.128A Food in esophagus causing other injury, initial encounter (principal); W44.F3XA Food entering into or through a natural orifice, initial encounter; F17.210 Nicotine dependence, cigarettes, uncomplicated; Z88.0 Allergy status to penicillin; Z79.899 Other long term (current) drug therapy
CPT/HCPCS: 43247; 71045; 80053; 84484; 85025; 85610; 86803; 87389; 93005; 99285; J1611; J2003; J2470; J2704